=== PATIENT | male | born 1945 | race Asian ===

== ENCOUNTER 2020-06-22 08:10 | Outpatient (REF) | payer OTHER, SELFPAY | END 2020-06-22 08:11 | disposition home or self-care (01) | LOC: HO.HMGCLDS 08:10 | PROVIDERS: PCP Internal Medicine; Visit Provider Internal Medicine | DX: Z20.822 Contact with and (suspected) exposure to COVID-19 (principal) | CPT/HCPCS: 36415; C9803; U0003; U0005 ==

== ENCOUNTER 2022-08-20 09:00 | Outpatient (REF) | payer OTHER, SELFPAY ==
--- NOTE | ~2022-08-20 | XR_ITS ---
EXAMINATION: XR CHEST CLINICAL INFORMATION: R05.9 - Cough, unspecified COMPARISON: Chest radiographs 06/16/2009 TECHNIQUE: 2 views of the chest were obtained. FINDINGS: Mild nonspecific coarsening central bronchiolar markings. No bronchiectasis. No hyperinflation. No airspace consolidation or groundglass opacity or effusion. Heart size normal. Vascularity normal. Costophrenic sulci are clear. The hilar and mediastinal contours are unremarkable. There is mild curvature and multilevel degenerative changes again seen thoracic spine. XR/XR chest 2V IMPRESSION: -Mild nonspecific coarsening central bronchiolar markings. -No hyperinflation. Lungs clear.
[2022-08-20 11:55] LABS: Influenza A PCR NEGATIVE (Negative); Influenza B PCR NEGATIVE (Negative); Resp Syncy Virus RNA Qual PCR NEGATIVE (Negative); SARS COV2 PCR INHOUSE NEGATIVE (Negative)
== END 2022-08-20 09:01 | disposition home or self-care (01) ==
LOC: HO.HMGCX 09:00
PROVIDERS: PCP Internal Medicine; Visit Provider Internal Medicine
DX: R05.9 Cough, unspecified (principal); R43.9 Unspecified disturbances of smell and taste; Z20.822 Contact with and (suspected) exposure to COVID-19
CPT/HCPCS: 0241U; 71046

== ENCOUNTER 2023-07-09 08:00 | Outpatient (RCR) | payer OTHER, SELFPAY | END 2024-01-11 14:52 | disposition home or self-care (01) | LOC: HO.PTCHIC 08:00 | PROVIDERS: PCP Internal Medicine; Visit Provider Physician Assistant | DX: M75.42 Impingement syndrome of left shoulder (principal) | CPT/HCPCS: 97110; 97162 ==

== ENCOUNTER 2024-07-15 07:03 | Emergency (ER) | payer OTHER, SELFPAY ==
--- NOTE | ~2024-07-15 | XR_ITS ---
EXAMINATION: XR CHEST CLINICAL INFORMATION: right sided pain, fell 3 weeks ago COMPARISON: August 20, 2022. TECHNIQUE: 2 views of the chest were obtained. FINDINGS: No no consolidation, pleural effusion or pneumothorax. Cardiomediastinal silhouette demonstrates a prominent thoracic aortic arch, unchanged. Calcified lymph nodes in the perihilar region. Multilevel thoracic spondylosis. No acute cortical disruption/fracture. XR/XR chest 2V IMPRESSION: No acute airspace disease. Stable chest. Electronically signed by: Randy Brink MD 07/15/2024 09:53 AM EDT
--- NOTE | ~2024-07-15 | CT_ITS ---
EXAMINATION: CT SOFT TISSUE NECK WITH CONTRAST CLINICAL INFORMATION: Severe pain, right-sided neck. COMPARISON: None available. TECHNIQUE: Following the intravenous administration of 60 mL of Omnipaque 350 intravenous contrast, helical imaging was performed in the axial plane with generation of coronal and sagittal reformatted images. This CT examination was performed using dose optimization techniques as appropriate, variously including the following: *Automated exposure control *Adjustment of mA and/or kV according to patient size (this includes techniques or standardized protocols for targeted exams where dose is matched to indication/reason for exam; i.e. extremities or head) *Use of iterative reconstruction technique DLP: 656 mGy centimeter. FINDINGS: Skull base, nasopharynx, retropharynx, oropharynx, hypopharynx and larynx demonstrated no gross masses or fluid collections. Punctate calcification left palatine tonsil. Pet Nutrition Specialist spaces, parapharyngeal spaces and carotid spaces demonstrated no masses or fluid collections. Salivary glands demonstrated no enhancing lesion or sialolithiasis. The thyroid gland is not enlarged. There is no dominant nodule. The vessels are patent without high degree stenosis or intimal flap. Left vertebral artery slightly dominant. No masses or fluid collections in the intraconal or extraconal compartments of the orbits. No lymphadenopathy. Pulmonary mosaic pattern, upper lungs. Are subtly calcified pannus formation, periodontal C1 region. Cervical spondylosis C4-5 C5-6 and C6-7 and to a lesser extent C3-4. Dextroconvex nasal septum morphology. Mucosal thickening paranasal sinuses. Edentulous. Tympanic cavities and mastoid air cells are aerated.. CT/CT soft tissue neck w IV con IMPRESSION: No masses, fluid collections or lymphadenopathy. No high degree stenosis or dissection. Electronically signed by: Randy Brink MD 07/15/2024 11:35 AM EDT
--- NOTE | ~2024-07-15 | XR_ITS ---
EXAMINATION: XR ELBOW 3 VIEWS RIGHT HISTORY: Elbow injury last month, persistent pain COMPARISON: There are no prior studies available for comparison. FINDINGS: Three views of the right elbow are submitted. Osseous mineralization is normal. No fracture or dislocation is seen. There is moderate degenerative change with joint space narrowing and osteophyte formation. There is a joint effusion with elevation of the anterior fat pad. Soft tissue calcifications medial and laterally are likely related to a ligamentous in nature. XR/XR elbow RT min 3V IMPRESSION: Large joint effusion. Moderate degenerative changes. No fracture is seen. Electronically signed by: Torrey Wilson MD 07/15/2024 10:18 AM EDT
[2024-07-15 07:08] VITALS: BP 156/84; PULSE 50; RESP 20; TEMP 37.3; O2SAT 99; BMI 31.5
--- NOTE | 2024-07-15 07:39 | ED_ITS ---
HPI - General Adult General Chief complaint: Neck Pain/Injury Stated complaint: Pain/swelling R side of neck, recent fall Time Seen by Provider: 07/15/24 07:39 History of Present Illness ED Provider: Kai JOHNSON narrative: The patient is a 78-year-old male who says that he sustained a fall when he was traveling in [facility] about a month ago. At the time he fell he landed on his right side and primarily hurt is right elbow. He had an x-ray in [place] at the time that showed a joint effusion. The patient has been having some ongoing pain in the right elbow since then but it has been getting somewhat better. The patient returned from [facility] yesterday. He had a long flight. Last night at around 23:00 he started to have a very bad pain in the right side of his neck so that it is very difficult to turn his head to the right. He was unable to sleep. He says that at the time that he fell last month he may have injured his neck slightly but he had no imaging studies done in [facility]. He also hit his head slightly but had no loss of consciousness. He also had no brain imaging. He is not on anticoagulation. The patient has a history of pulmonary emboli and has been on warfarin in the past but is not currently on warfarin. 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 Related Data Home Medications ?Medication ?Instructions ?Recorded ?Confirmed aspirin 81 mg tablet,delayed 81 mg PO DAILY 02/21/22 08/20/22 release lisinopril 30 mg tablet 30 mg PO DAILY 02/21/22 08/20/22 Previous Rx's ?Medication ?Instructions ?Recorded prednisone 20 mg tablet 60 mg (3 x 20 mg) PO DAILY #9 tabs 08/20/22 azithromycin 250 mg tablet See Rx Instructions PO .COMPLEX #6 10/10/22 tabs [id number] 3.5 4 drp otic (ears) Q8H #10 mL 10/10/22 mg-10,000 unit/mL-1 % ear drops,susp acetaminophen 500 mg capsule 1,000 mg (2 x 500 mg) PO Q8H PRN 07/15/24 fever or pain #14 caps cyclobenzaprine 10 mg tablet 10 mg PO TID PRN muscle spasm #14 07/15/24 tabs ibuprofen 400 mg tablet 400 mg PO Q6H PRN pain #14 tabs 07/15/24 morphine 15 mg immediate release 15 mg PO Q6H PRN pain #14 tabs 07/15/24 tablet Allergies Allergy/AdvReac Type Severity Reaction Status Date / Time No Known Allergies Allergy Verified 07/15/24 07:14 Review of Systems 2 Review of Systems: Yes all other systems are reviewed and are negative [facility] Social History Social History Patient Tobacco Use Status: Never used Tobacco Physical Exam ED Vital Signs: Vital Signs - 24 hr 07/15/24 09:51 07/15/24 12:10 07/15/24 13:15 Temperature 97.6 F 97.8 F 98.5 F Pulse Rate 44 L 52 80 Respiratory Rate 18 18 18 Blood Pressure 148/70 H 139/67 135/88 Pulse Oximetry 98 98 Oxygen Delivery Method Room Air Room Air 07/15/24 13:50 Temperature 98.5 F Pulse Rate 80 Respiratory Rate 18 Blood Pressure 135/88 Pulse Oximetry 98 Oxygen Delivery Method Room Air BMI result Body Mass Index 31.5 Const Other: The patient is a 78-year-old male who was awake and alert. He was holding the right side of his neck with his hand. GCS is 15. He is pleasant and cooperative although he looks somewhat uncomfortable. HENMT Other: Face is symmetrical. Mucous membranes moist. Eyes Other: Pupils are round equal, conjunctivae are clear, extraocular movements intact. Neck Other: The patient has significant right-sided neck tenderness. This is mostly in the region of the posterior cervical chain although I do not appreciate any discrete lymph nodes. The anterior neck does not seem tender. There does not seem to be midline tenderness in the posterior neck. There is no visible abnormality to the neck and no palpable swelling. The patient has diminished range of motion of the neck particularly when he tries to turn his head to the right. Resp Effort & Inspection: normal respiratory effort Auscultation: clear to auscultation bilaterally Cardio Rate: bradycardic Rhythm: regular rhythm Heart sounds: S1 normal heart sound present and S2 normal heart sound present GI Other: Abdomen is soft and nontender Skin Other: Skin is dry and unremarkable. No skin changes to the skin of the neck in the region of the patient's tenderness. Neuro Other: The patient is awake and alert with a normal mental status. Pupils are round, equal, and reactive to light. No ptosis. Extraocular movements are intact. Face is symmetrical. Speech is normal. He has normal strength and sensation in his extremities. Finger-nose testing is normal in both arms. Heel-perkins testing is normal in both legs. Extrem Other: There is some mild generalized tenderness to the right elbow. He has a mildly diminished range of motion of the elbow. No calf swelling or tenderness. No peripheral edema. No asymmetry to the legs. Medications Administered Discontinued Medications Generic Name Dose Route Start Last Admin Trade Name Rodrickq PRN Reason Stop Dose Admin Iohexol 100 ml 07/15/24 10:59 07/15/24 10:59 Iohexol 350 Mg/Ml 100 Ml Infus..Btl IV 07/15/24 11:00 60 ml ONCE ONE Administration Ketorolac Tromethamine 10 mg 07/15/24 11:56 07/15/24 12:09 Ketorolac Tromethamine 15 Mg/Ml Vial IVPUSH 07/15/24 11:57 10 mg ONCE ONE Administration Morphine Sulfate 4 mg 07/15/24 09:36 07/15/24 09:49 Morphine Sulfate 4 Mg/Ml Cartridge IVPUSH 07/15/24 09:37 4 mg ONCE ONE Administration Protocol Ondansetron HCl 4 mg 07/15/24 09:36 07/15/24 09:49 Ondansetron Hcl 4 Mg/2 Ml Vial IVPUSH 07/15/24 09:37 4 mg ONCE ONE Administration Medical Decision Making Medical Decision Making [facility] Narrative: The patient is a 78-year-old male who presents with right-sided neck pain that began yesterday evening. The patient had recently returned to [facility] 2 days ago on a 15 hour flight. Patient also reports a fall several weeks ago in which he injured his right side, primarily his right elbow. He has an x-ray of the elbow that he obtained while in [facility] that showed a joint effusion. At the time of the fall several weeks ago he had only a trivial glance to the head and he had no acute neck pain at that time. The patient's complaint today, his right-sided neck pain, is a pain that started only last night, several weeks after the fall the patient describes. The patient is not on any anticoagulation although he has been on warfarin in the past. Four years ago he was found to have a pulmonary embolism. The etiology the Pulmonary embolism was not determined. Here in the emergency room the patient has what seems to be musculoskeletal right-sided neck pain. He has no fever. He has no neurological symptoms or findings. No findings or symptoms of a posterior circulation deficit. EKG shows sinus bradycardia. 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 An x-ray of the right elbow was done, essentially has a follow up to the x-ray he brought with him to the emergency room that has been taken an [place] several weeks ago. Today's x-ray also shows a joint effusion. The patient was treated for pain and seemed to get a lot of relief from ketorolac more so then from morphine. The patient will be discharged with prescriptions for acetaminophen, ibuprofen, cyclobenzaprine, and morphine tablets. Of note: At the time that the patient was discharged the official results of the right elbow x-ray were not available. I contacted the patient 2 days later on ThursdayJuly 17 and spoke to his regarding the finding of an effusion on the elbow. The patient's was given the contact information for [facility] for follow up for this issue. The told me that the patient's neck pain was doing better. Lab Data 07/15/24 08:02 07/15/24 08:02 Labs: Lab Results 07/15/24 Range/Units 08:02 WBC 7.6 (4.8-10.8) X10*3/uL RBC 5.49 (4.60-5.80) X10*6/uL Hgb 15.1 (14.0-18.0) g/dl Hct 45.3 (42.0-52.0) % MCV 82.5 (80.0-98.0) fL MCH 27.5 (27.0-33.0) pg MCHC 33.3 (31.0-36.0) g/dl RDW 15.1 (11.0-16.0) % Plt Count 214 (160-400) X10*3/uL MPV 9.0 L (9.4-12.4) fL Immature Gran % (Auto) 0.3 (0.0-0.4) % Neut % (Auto) 65.7 (45-73) % Lymph % (Auto) 19.1 L (20-40) % Levy % (Auto) 10.2 (2-11) % Eos % (Auto) 4.0 (0-4) % Baso % (Auto) 0.7 (0-2) % Lymph # (Auto) 1.5 (1.2-4.9) X10*3/uL Levy # (Auto) 0.8 (0.1-1.2) X10*3/uL Eos # (Auto) 0.3 (0.0-0.4) X10*3/uL Baso # (Auto) 0.1 (0.0-0.2) X10*3/uL Abs Immat Gran (auto) 0.02 (0.00-0.03) X10*3/uL Absolute Neuts (auto) 5.0 (2.0-8.3) x10*3/uL Absolute Nucleated RBC 0.000 (0.0-0.012) X10*3/uL Nucleated RBC % (auto) 0.0 (0.0-0.2) /100WBC PT 11.1 (10.9-12.4) SEC INR 1.0 (0.9-1.1) Sodium 137 (135-145) mmol/L Potassium 4.9 (3.3-5.1) mmol/L Chloride 112 H (96-108) mmol/L Carbon Dioxide 17 L (22-29) mmol/L Anion Gap 13 (12-20) BUN 11 (9-16) mg/dL Creatinine 0.87 (0.5-1.4) mg/dL Estim Creat Clear Calc 71.7 Estimated GFR > 60 Random Glucose 85 (60-115) mg/dL Calcium 8.9 (8.4-10.2) mg/dL Magnesium 1.8 (1.6-2.6) mg/dL Total Bilirubin 0.4 (0.0-1.0) mg/dL Direct Bilirubin 0.1 (0.0-0.5) mg/dL AST 37 (5-37) U/L ALT 19 (0-40) U/L Alkaline Phosphatase 77 (39-117) U/L Troponin I High Sens < 2.7 (<3.5-35.0) ng/L C-Reactive Protein 1.32 H (< or = 0.50) mg/dL Total Protein 7.6 (6.5-8.0) g/dL Albumin 3.5 (3.5-5.0) g/dL Influenza Type A (PCR) NEGATIVE (Negative) Influenza Type B (PCR) NEGATIVE (Negative) RSV RNA Qual (PCR) NEGATIVE (Negative) SARS-CoV-2 RNA (RT-PCR) NEGATIVE (Negative) Discharge Plan Discharge Clinical Impression: Neck pain on right side, Effusion of right elbow Patient Disposition: Home, Self-Care Instructions: Spasmodic Torticollis (ED) Additional Instructions: Your testing in the emergency room today seems reassuring. I suspect that you were having a severe muscle spasm type of pain that is sometimes called torticollis. For pain management you may take acetaminophen 1000 mg up to 3 times per day. You may also use the prescribed ibuprofen every 6 hours as needed. In addition I have sent a prescription for cyclobenzaprine, a muscle relaxant which you can use up to 3 times a day. Also a prescription for morphine tablets which you can also try if necessary. Be careful with cyclobenzaprine and morphine. Both of these medications can make you drowsy. No driving on these medications. Please rest and take it easy and drink lot of fluids. Please follow up with your regular doctor next week. Return to the emergency room if significantly worse. Prescriptions: New cyclobenzaprine 10 mg tablet 10 mg PO TID PRN (Reason: muscle spasm) Qty: 14 0RF ibuprofen 400 mg tablet 400 mg PO Q6H PRN (Reason: pain) Qty: 14 0RF morphine 15 mg tablet 15 mg PO Q6H PRN (Reason: pain) Qty: 14 0RF Rx Instructions: Partial Fill upon patient request. acetaminophen 500 mg capsule 1,000 mg PO Q8H PRN (Reason: fever or pain) Qty: 14 0RF No Action aspirin 81 mg tablet,delayed release (DR/EC) 81 mg PO DAILY lisinopril 30 mg tablet 30 mg PO DAILY azithromycin 250 mg tablet See Rx Instructions PO .COMPLEX Qty: 6 0RF Rx Instructions: take 500 mg today (day 1), then 250 mg for 4 days (days 2-5) PO shhejpxz-esanmhbbb-ZP 3.5-10,000-1 mg/mL-unit/mL-% drops,suspension 4 drp otic (ears) Q8H Qty: 10 0RF prednisone 20 mg tablet 60 mg PO DAILY Qty: 9 0RF Referrals: [facility] [Provider Group] (Persistent right elbow effusion) Joel Veronica III, MD [Primary Care Provider] - (Right-sided neck pain) Interventions: ED Discharge Assessment Last Done: 07/15/24 13:50 Discharge Date/Time: 07/15/24 13:51 Print Language: [place] Islander
--- NOTE | 2024-07-15 07:48 | ECG_ITS ---
Test Reason : NECK PAIN Blood Pressure : */* mmHG Vent. Rate : 52 BPM Atrial Rate : 52 BPM P-R Int : 190 ms QRS Dur : 104 ms QT Int : 440 ms P-R-T Axes : 80 -14 14 degrees QTcB Int : 409 ms Sinus bradycardia Otherwise normal ECG No previous ECGs available Referred By: Eddie Quinn Electronically Signed By: Jaciel Ghotra
[2024-07-15 08:05] LABS: MANUAL DIFF FLAG NO
[2024-07-15 08:09] LABS: Basophils Absolute Auto 0.1 X10*3/uL (0.0-0.2); Basophils Percent Auto 0.7 % (0-2); Eosinophils Absolute Auto 0.3 X10*3/uL (0.0-0.4); Hematocrit 45.3 % (42.0-52.0); Hemoglobin 15.1 g/dl (14.0-18.0); Imm Gran Abs Auto 0.02 X10*3/uL (0.00-0.03); Imm Gran Pct Auto 0.3 % (0.0-0.4); Lymphocytes Absolute Auto 1.5 X10*3/uL (1.2-4.9); Lymphocytes Percent Auto 19.1 % (20-40); Mean Corpuscular HGB Conc 33.3 g/dl (31.0-36.0); Mean Corpuscular Hemoglobin 27.5 pg (27.0-33.0); Mean Corpuscular Volume 82.5 fL (80.0-98.0); Monocytes Absolute Auto 0.8 X10*3/uL (0.1-1.2); Monocytes Percent Auto 10.2 % (2-11); Neutrophils Percent Auto 65.7 % (45-73); Platelet Count 214 X10*3/uL (160-400); Red Blood Count 5.49 X10*6/uL (4.60-5.80); Red Cell Distribution Width 15.1 % (11.0-16.0); White Blood Count 7.6 X10*3/uL (4.8-10.8)
[2024-07-15 08:33] LABS: Troponin-I High Sensitivity < 2.7 ng/L (<3.5-35.0)
[2024-07-15 08:34] LABS: Prothrombin Time 11.1 SEC (10.9-12.4)
[2024-07-15 08:51] LABS: Alanine Aminotransferase 19 U/L (0-40); Albumin Level 3.5 g/dL (3.5-5.0); Alkaline Phosphatase 77 U/L (39-117); Anion Gap 13 (12-20); Aspartate Amino Transferase 37 U/L (5-37); Bilirubin Direct 0.1 mg/dL (0.0-0.5); Bilirubin Total 0.4 mg/dL (0.0-1.0); Blood Urea Nitrogen 11 mg/dL (9-16); C Reactive Protein 1.32 mg/dL (< or = 0.50); Calcium 8.9 mg/dL (8.4-10.2); Carbon Dioxide 17 mmol/L (22-29); Chloride 112 mmol/L (96-108); Creatinine Clr Calc Pharmacy 71.7; Estimated Glomerular Filt Rate > 60; Glucose Random 85 mg/dL (60-115); Magnesium 1.8 mg/dL (1.6-2.6); Potassium 4.9 mmol/L (3.3-5.1); Sodium 137 mmol/L (135-145); Total Protein 7.6 g/dL (6.5-8.0)
[2024-07-15 09:40] LABS: Influenza A PCR NEGATIVE (Negative); Influenza B PCR NEGATIVE (Negative); Resp Syncy Virus RNA Qual PCR NEGATIVE (Negative); SARS COV2 PCR INHOUSE NEGATIVE (Negative)
[2024-07-15] MEDS: Morphine Sulfate 4 MG/ML CARTRIDGE IVPUSH (09:49)
[2024-07-15] MEDS: ondansetron HCL 4 MG/2 ML VIAL IVPUSH (09:49)
[2024-07-15 09:51] VITALS: BP 148/70; PULSE 44; RESP 18; TEMP 36.4; O2SAT 98
--- NOTE | 2024-07-15 09:52 | PC.NURSE ---
pt medicated per provider order. effectiveness pending.
[2024-07-15] MEDS: iohexoL 350 MG/ML 100 ML INFUS..BTL IV (10:59)
--- NOTE | 2024-07-15 11:16 | PC.NURSE ---
Report received from BRIAN Arriola. Taken over care at this time.
[2024-07-15] MEDS: Ketorolac Tromethamine 15 MG/ML VIAL 10 MG IVPUSH (12:09)
[2024-07-15 12:10] VITALS: BP 139/67; PULSE 52; RESP 18; TEMP 36.6; O2SAT 98
[2024-07-15 13:15] VITALS: BP 135/88; PULSE 80; RESP 18; TEMP 36.9
[2024-07-15 13:50] VITALS: BP 135/88; PULSE 80; RESP 18; TEMP 36.9; O2SAT 98
== END 2024-07-15 13:51 | disposition home or self-care (01) ==
PROVIDERS: Emergency Provider Emergency Medicine; PCP Internal Medicine
DX: M54.2 Cervicalgia (principal); M25.421 Effusion, right elbow; R00.1 Bradycardia, unspecified; R40.2410 Glasgow coma scale score 13-15, unspecified time; Z03.818 Encounter for observation for suspected exposure to other biological agents ruled out; Z79.899 Other long term (current) drug therapy
CPT/HCPCS: 0241U; 36415; 70491; 71046; 73080; 80048; 80076; 83735; 84484; 85025; 85610; 86140; 93005; 96374; 96375; 99284; 99285; J1885; J2270; J2405; Q9967

== ENCOUNTER → 2024-07-15 07:48 | Outpatient (BNV) | payer OTHER, SELFPAY | PROVIDERS: Emergency Provider Emergency Medicine; PCP Internal Medicine; Visit Provider Internal Medicine Cardiovascular Disease | DX: R00.1 Bradycardia, unspecified (principal) | CPT/HCPCS: 93010 ==

== ENCOUNTER → 2024-07-15 08:02 | Outpatient (BNV) | payer OTHER, SELFPAY | PROVIDERS: Emergency Provider Emergency Medicine; PCP Internal Medicine; Visit Provider Radiology Diagnostic Radiology | DX: M54.2 Cervicalgia (principal); R07.9 Chest pain, unspecified; M25.421 Effusion, right elbow; M19.021 Primary osteoarthritis, right elbow | CPT/HCPCS: 70491; 71046; 73080 ==

== ENCOUNTER 2024-08-05 08:10 | Outpatient (AMB) | payer OTHER, SELFPAY ==
--- OUTSIDE RECORDS SUMMARY | 2024-08-05 08:17 | XMS_ITS | Clinical Summary ---
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 Role Phone Unavailable Primary Care Provider Unavailabl e Immunizations Name Administration Dates Next Due Influenza injectable quadrivalent preservative f ree 05/07/2023 Social History Tobacco Use Types Packs/Day Years Used Date Smoking Tobacco: Never Assessed Sex and Gender Information Value Date Recorded Sex Assigned at Male 05/07/2023 10:01 AM EST Legal Sex Male 9:59 AM EST Gender Identity Male 05/07/2023 10:01 AM EST Sexual Orientation Choose not to disclose 2023 10:01 AM EST Plan of Treatment Health Maintenance Due Date Last Done Comments Depression Screening 1944 Lipid Panel 1944 SDOH Screening 1944 Alcohol/Substance Use Screening 1956 Tobacco Screening 1956 Hepatitis C Screening 1962 Zoster Vaccines (1 of 2) 1994 DTaP/Tdap/Td Vaccines (1 - Tdap) 03/20/2016 03/19/2016, 12/24/2010 RSV Patients and Patients Aged 60 years or older (1 - 1-dose 75+ series) 11/20/2019 COVID-19 Vaccine ( season) 2023 11/12/2021, 02/01/2021, 07/24/2020, Additional history exists Influenza Vaccine (#1) 2023 , 01/09/2023, 01/08/2021, Additional history exists Pneumococcal Vaccine: 50+ Years Completed 05/13/2018, 11/26/2010 HIB Vaccines Aged Out No longer eligi ble based on patient's age to complete this topic HPV Vaccines Aged Out No longer eligi ble based on patient's age to complete this topic Hepatitis A Vaccines Aged Out No long er eligible based on patient's age to complete this topic Hepatitis B Vaccines Aged Out No long er eligible based on patient's age to complete this topic IPV Vaccines Aged Out No longer eligi ble based on patient's age to complete this topic Meningococcal Vaccine Aged Out No bobby cecil eligible based on patient's age to complete this topic RSV under 20 months Aged Out No longe r eligible based on patient's age to complete this topic Rotavirus Vaccines Aged Out No longer eligible based on patient's age to complete this topic Insurance [facility]
--- OUTSIDE RECORDS SUMMARY | 2024-08-05 08:17 | XMS_ITS | Clinical Summary ---
Author Organization [facility] [address] [facility] Address [address] [place] [address] Phone Care Team Providers Care Clerical Assistant Name Role Phone Joel Veronica MD Primary Care Provider [phone] Allergies No known active allergies Medications acetaminophen (TYLENOL 8 HOUR) 650 mg 8 hr tablet Take 1 tablet (650 mg total) by mouth 2 (two) times a day. 02/09/20 24 Active apixaban (Eliquis) 5 mg tablet Take 1 tablet (5 mg total) by mouth 2 (two) times a day. 02/09/20 24 Active cetirizine (ZyrTEC) 10 mg tablet Take 1 tablet (10 mg total) by mouth 1 (one) time each day. 02/09/20 24 Active dapagliflozin propanediol (Farxiga) 10 mg tablet Take 1 tablet (10 mg total) by mouth 1 (one) time each day. 02/09/20 24 Active aspirin 81 mg EC tablet Take 1 tablet (81 mg total) by mouth 1 (one) time each day. 11/27/19 24 Active betamethasone, augmented, (DIPROLENE-AF) 0.05 % cream PLEASE SEE ATTACHED FOR DETAILED DIRECTIONS 02/09/20 24 Active lisinopril (PRINIVIL,ZESTR IL) 40 mg tablet Take 1 tablet (40 mg total) by mouth 1 (one) time each day. 01/29/20 24 Active metoprolol succinate (TOPROL-XL) 100 mg 24 hr tablet Take 1 tablet (100 mg total) by mouth 1 (one) time each day. 01/29/20 24 Active finasteride (PROSCAR) 5 mg tablet Take 1 tablet (5 mg total) by mouth 1 (one) time each day. 01/29/20 24 Active tamsulosin (FLOMAX) 0.4 mg 24 hr capsule Take 1 Capsule by mouth daily. Take 30 mins after same meal every day. 01/29/20 24 Active omeprazole (PriLOSEC) [address] capsule Take 1 capsule (20 mg total) by mouth 1 (one) time each day. 02/05/20 Active ergocalciferol (VITAMIN D-2) 1,250 mcg (50,000 unit) capsule Take 1 Capsule by mouth once a week. 12/10/19 24 Active spironolactone (ALDACTONE) 25 mg tablet TAKE 1/2 TABLET BY MOUTH DAILY 45 tablet 1 05/09/19 25 Active ferrous sulfate 325 mg (65 mg elemental iron) tablet TAKE 1 TABLET BY MOUTH EVERY DAY 180 tablet 1 08/03/19 25 Active ferrous sulfate 325 mg (65 mg elemental iron) tablet Take 1 tablet (325 mg total) by mouth 1 (one) time each day. 01/29/20 24 025 Discontinued Active Problems Problem Noted Date Diagnosed Date Atrial flutter ([facility] V24, [facility] V28) 2022 Cardiomyopathy ([facility] V24, [facility] V28) 2022 Overview (04/16/2024): With ejection fraction 20 to 25% Chest discomfort 02/05/2023 CKD (chronic kidney disease) stage 3, GFR 30-59 ml/min ([facility] V24, [facility] V28) 12/29/2019 Gastroesophageal reflux disease without esophagi tis 06/20/2019 HTN (hypertension) 03/19/2016 DJD (degenerative joint disease) of knee 013 Lipoma of abdominal wall 05/05/2012 Encounters Date Type Department Care Team Description 07/21/2024 11:30 AM EDT Office Visit Adult Medicine [address] [phone] Neeta Villegas PA Right elbow pain (Primary Dx); Neck muscle spasm; Benign prostatic hyperplasia with lower urinary tract symptoms, symptom details unspecified 07/14/2024 Telephone Adult Medicine [address] [phone] Joel Veronica MD Elbow Pain (Right due to fall (no greater than 10 ft)) from Last 3 Months Immunizations Name Administration Dates Next Due Influenza Quadravalent, MDCK , 0.5ml, preservative free (Flucelvax) 6mo and older 03/08/2018 Influenza trivalent, 0.5mL ( Fluad) 65yo and older 01/09/2023,01/09/2017,01/17/2015 Pneumococcal conjugate 13 va lent (Prevnar 13, PCV13) 2mo and older 05/13/2018 Pneumococcal polysaccharide 23 valent (Pneumovax 23) 2yo and older 11/26/2010 Td Tetanus diptheria (Tdvax) 7yo and older 03/19,12/24/2010 Surgical History Surgery Date Site/Laterality Comments OTHER SURGICAL HISTORY PROCEDURE: [place] CURTG/CAUT ANAL FISSURE W/DILAT SPHNCTR SPX 1ST COLONOSCOPY 06/25/16 PROCEDURE: HISTORICAL COLONOSCOPY; COMMENT: adenomas and tics; repeat in 3 yrs KNEE SURGERY 08/08/2016 PROCEDURE: HISTORICAL KNEE SURGERY; COMMENT: Dr. Aguilar Medical History Medical History Date Comments HTN (hypertension) DX:HTN (hyper tension) Gastroesophageal reflux dise ase without esophagitis 06/20/2019 DX:Gastroesophageal reflux d isease without esophagitis OA (osteoarthritis) DX:OA (osteo arthritis) Class 1 obesity DX:Class 1 obesi ty HTN (hypertension) 03/19/2016 Family History Medical History Relation Name Comments Other: Other Father , herni a Other: Mother Blindness Neg Hx Cataracts Neg Hx Glaucoma Neg Hx Macular degeneration Neg Hx Strabismus Neg Hx Relation Name Status Comments Father Mother Social History Tobacco Use Types Packs/Day Years Used Date Smoking Tobacco: Never Smokeless Tobacco: Current Tobacco Cessation:Ready to Q uit: Not Asked; Counseling Given: Not Answered Alcohol Use Standard Drinks/Week Comments No 0 (1 standard drink = 0.6 oz pur e alcohol) Sex and Gender Information Value Date Recorded Sex Assigned at Not on file Legal Sex Male 5:43 PM EST Gender Identity Not on file Sexual Orientation Not on file Obstetrics History Last Filed Vital Signs Vital Sign Reading Time Taken Comments Blood Pressure 112/68 07/21/2024 11:27 AM EDT Pulse 51 07/21/2024 11:27 AM EDT Temperature 36.6 ??C (97.8 ??F) 07/21/2024 11:27 AM E DT Respiratory Rate - - Oxygen Saturation - - Inhaled Oxygen Concentration - - Weight 90.7 kg (200 lb) 07/21/2024 11:27 AM EDT Height 170.2 cm (5' 7 ) 07/21/2024 11:27 AM EDT Body Mass Index 31.32 07/21/2024 11:27 AM EDT Plan of Treatment Upcoming Encounters Date Type Department Care Team (Late st Contact Info) Description 08/11/2024 9:00 AM EDT Consult Orthopedics - [address] [phone] Daniel Schaefer PA [address] [place] [address] 08/12/2024 9:45 AM EDT Office Visit Adult Medicine [address] [phone] Liliane Truong PA [address] [place] [address] 02/13/2025 9:30 AM EDT Office Visit Adult Medicine [address] [phone] Joel Veronica MD [address] [place] [phone] Health Maintenance Due Date Last Done Comments Zoster Vaccines (1 of 2) 1994 RSV Immunization Adult Patients (1 - 1-dose 75+ series) 11/20/2019 Colorectal Cancer Screening: Stool Based Tests (FOBT/FIT) 04/05/2022 Depression Screening 04/05/2022 Falls Risk Assessment 04/05/2022 Medicare Annual Wellness Visit 04/05/2022 Social Influencers of Health Screening 04/05/2022 Hypertension/CHF/CAD Annual BMP Blood Test 12/08/2024 12/09/2023, 12/09/2023, 11/24/2023 Cholesterol Screening (Lipid Panel) 11/20/2025 11/20/2020 DTaP,Tdap,and Td Vaccines (3 - Td or Tdap) 03/19/2026 03/19/2016, 12/24/2010 Hepatitis C Screening Completed 10/21/2012 Pneumococcal Vaccine: 50+ Years Completed 05/13/2018, 11/26/2010 COVID-19 Vaccine Completed 01/15/2024, , 02/01/2021, Additional history exists Influenza Vaccine Completed 01/22/2024, , 01/09/2023, Additional history exists HIB Vaccines Aged Out No longer eligi [...] on patient's age to complete this topic MMR Vaccines Aged Out No longer eligi ble based on patient's age to complete this topic Meningococcal ACWY Vaccine Aged Out N o longer eligible based on patient's age to complete this topic Meningococcal B Vaccine Aged Out No l onger eligible based on patient's age to complete this topic RSV Immunization Patients Under 20 months Aged Out No longer eligible based on patient's age to complete this topic Varicella Vaccines Aged Out No longer eligible based on patient's age to complete this topic Procedures Procedure Name Priority Date/Time Associated Diagnosis Comments ANNUAL BMP BLOOD TEST Routine 12/09/2023 LIPID PANEL Routine 11/20/2020 HEPATITIS C SCREENING Routine 10/21/2012 from Last 3 Months or Most Recently Relevant to Health Maintenance Results * Annual BMP Blood Test (12/09/2023) Annual BMP Blood Test abstracted us Historical Provider MD HEALTH MAINTENANCE Final Result * Lipid panel (11/20/2020) LDL/HDL Ratio 3 0 - 4 Triglycerides 72 0 - 150 mg/dL Cholesterol 150 0 - 200 mg/dL HDL 59 >=40 mg/dL LDL Cholesterol 77 0 - 100 mg/dL Blood Venous blood specimen / Unknown Historical Provider LAB BLOOD ORDERABLES Ree l Result * Hepatitis C Screening (10/21/2012) Hepatitis C Screening abstracted Historical Provider HEALTH MAINTENANCE Final Result from Last 3 Months or Most Recently Relevant to Health Maintenance Insurance [employer] Member Subscriber Plan / Payer (Ef fective 2016-Present) Name:Jacqueline Figueroa Relation to Subscriber:Self Name:Jacqueline Figueroa Payer ID:[id number] Group ID:[id number] Type:Not on file Address: [place] [address] [address] [address] [phone] Care Teams Clerical Assistant Relationship Specialty Start Date End Date Joel Veronica MD [address] [place] [address] [phone] PCP - General 08/16/10
--- OUTSIDE RECORDS SUMMARY | 2024-08-05 08:17 | XMS_ITS | Clinical Summary ---
Author Organization [facility] Address [address] [place] [address] Care Team Providers Care Marine Equipment Engineer Name Role Phone Joel Veronica MD Primary Care Provider [phone] Allergies No known active allergies Medications Medication Sig Dispensed Refills Start Date End Date Status Diclofenac Sodium 1 % GEL topical RUB 4 GRAMS ONTO THE AFFECTED AREA TWICE A DAY 0 01/26/2020 Active lisinopril (PRINIVIL,ZESTRIL) tablet 20 mg Take 1 tablet (20 mg total) by mouth daily. 0 01/08/2020 Active omeprazole (PriLOSEC) 20 MG capsule Take 1 capsule (20 mg total) by mouth daily. 0 02/05/2020 Active Emollient (CERAVE) LOTN Apply topically. 0 Active ferrous sulfate 325 (65 FE) MG tablet Take 1 tablet (325 mg total) by mouth every morning with breakfast. 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 Acute pulmonary embolism without acute cor pulmo nale 03/05/2020 Skin rash 03/05/2020 Pulmonary infarction 03/05/2020 CKD (chronic kidney disease) stage 3, GFR 30-59 ml/min 12/29/2019 Gastroesophageal reflux disease without esophagi tis 06/20/2019 HTN (hypertension) 03/19/2016 DJD (degenerative joint disease) of knee 013 Social History Tobacco Use Types Packs/Day Years Used Date Smoking Tobacco: Never Smokeless Tobacco: Never Alcohol Use Standard Drinks/Week Comments No 0 (1 standard drink = 0.6 oz pur e alcohol) Sex and Gender Information Value Date Recorded Sex Assigned at Not on file Gender Identity Not on file Sexual Orientation Not on file Job Start Date Occupation Industry Not on file Not on file Not on file Last Filed Vital Signs Vital Sign Reading Time Taken Comments Blood Pressure 137/73 05/22/2022 10:12 AM EST Pulse 77 05/22/2022 10:12 AM EST Temperature 36.8 ??C (98.2 ??F) 05/22/2022 10:[address] Respiratory Rate - - Oxygen Saturation 96% 05/22/2022 10:12 AM EST Inhaled Oxygen Concentration - - Weight 96.3 kg (212 lb 6.4 oz) 05/22/2022 10:12 AM EST Height 168.9 cm (5' 6.5 ) 03/07/2021 9:32 AM EST Body Mass Index 33.77 03/07/2021 9:32 AM EST Plan of Treatment Health Maintenance Due Date Last Done Comments Hepatitis C Screening 1944 COVID-19 Vaccine (#1) 05/22/1945 Depression Screening 1956 Preventative Health Evaluation 1962 Shingrix-Zoster Vaccine (1 o f 2) 1994 Fall Risk Assessment 2009 DTap / Tdap / Td (1 - Tdap) 03/20/201602/26, 12/24/2010 RSV Adult > 60+ Yrs or (1 - 1-dose 75+ series) 11/20/2019 Influenza Vaccine (#1) 2023 8, 01/09/2017, 01/17/2015 Pneumococcal Vaccine Completed 05/13/2018, 11/26/2010 Hepatitis B Vaccines Aged Out No long er eligible based on patient's age to complete this topic RSV Ped < 20 months Aged Out No longe r eligible based on patient's age to complete this topic Care Teams Marine Equipment Engineer Relationship Specialty Start Date End Date Joel Veronica MD PCP - General Internal Medicine 02/20/20
[2024-08-05 08:46] VITALS: BP 130/88; PULSE 82; TEMP 36.4; O2SAT 97; BMI 31.3
--- NOTE | 2024-08-05 08:46 | MHC.OFFWIV ---
Intake Vital Signs 08/05/24 08:46 Height 5 ft 6 in Weight 194 lb BMI 31.3 BP 130/88 Blood Pressure Location Lt brachial Position Sitting Pulse 82 Pulse Source Pulse Oximeter Temp 97.6 F Temp Source Oral Pulse Oximetry (%) 97 Oxygen Delivery Method Room Air Intake Visit Reasons: EP diarreah off & on for 2 weeks Intake Note: Pt presents to the office today for c/o diarrhea that comes and goes x2 weeks. Pt states he also has dizziness. Pt states he was in [place] about a month ago. Patient Tobacco Use Status: Never used Tobacco Allergies No Known Allergies Allergy (Verified 08/05/24 08:47) Medication List - Last Reconciled 08/05/24 by Art Fry MD acetaminophen 1,000 mg (2 x 500 mg) PO Q8H PRN aspirin 81 mg PO DAILY cyclobenzaprine 10 mg PO TID PRN ibuprofen 400 mg PO Q6H PRN lisinopril 30 mg PO DAILY krubvagy-yydibzhbk-N[place] 3.5-10,000-1 mg/mL-unit/mL-% 4 drps otic (ears) Q8H omeprazole 20 mg PO DAILY omeprazole 40 mg PO DAILY HPI EP diarreah off & on for 2 weeks HPI Details History - The patient is a 78-year-old male presenting with diarrhea and associated symptoms following travel - Diarrhea commenced intermittently after returning from [place] and has persisted for multiple weeks. - Symptom improvement is noted with the use of Imodium, although symptoms recur periodically. - The patient denies any blood in stools, but reports dizziness and a decrease of 10 pounds in body weight since the onset of symptoms. - The patient's appetite has been diminished, though shows gradual improvement. - There is no fever, and no nausea is reported. - The frequency of diarrhea varies, sometimes occurring up to three times in a single morning. - Observations indicate unease and inflammatory sensation in the stomach. Problem List - Traveler's Diarrhea - Unspecified Gastritis Patient Instructions - Limit the intake of Imodium to assess the current state of symptoms. - Ensure adequate hydration, emphasizing the intake of fluids such as Gatorade or adult electrolyte solutions. - Maintain a diet involving boiled rice, chicken soup, and boiled pasta while avoiding dairy, citrus, and tea. - Avoid yogurt until symptoms resolve. - Complete blood work and stool studies as ordered. - Avoid tea and follow dietary recommendations to aid in recovery. Review of Systems - General: No fever no chills - Neurological: No headaches no dizziness - Ear nose throat: No sore throat no hearing difficulty no ear pain - Cardiovascular: No syncope, no chest pain, no palpitations Physical Exam General: No acute distress HEENT: No acute findings Neck: Supple Respiratory system: Able to talk in full sentences, no audible wheeze Gastrointestinal: discomfort LUQ with deep palpation, Bs +, no pain over LLQ Extremities: No new findings GLUER MACHINE SETUP OPERATOR: Alert awake oriented x3 motor sensory intact Skin: Normal turgor [facility] Social History Patient Tobacco Use Status: Never used Tobacco Physical Exam Vital Signs: Last Vital Signs Temp 97.6 F 08/05/24 08:46 Pulse 82 08/05/24 08:46 BP 130/88 08/05/24 08:46 Pulse Ox 97 08/05/24 08:46 Oxygen Delivery Method Room Air 08/05/24 08:46 BMI result Body Mass Index 31.3 Assessment & Plan Assessment & Plan (1) Diarrhea: Code(s): R19.7 - Diarrhea, unspecified Qualifiers: Diarrhea type: presumed infectious Qualified Code(s): R19.7 - Diarrhea, unspecified (2) Abdominal pain: Code(s): R10.9 - Unspecified abdominal pain Qualifiers: Abdominal location: left upper quadrant Qualified Code(s): R10.12 - Left upper quadrant pain (3) Travel-related illness: Code(s): R69 - Illness, unspecified (4) Lack of appetite: Code(s): R63.0 - Anorexia (5) Dizziness: Code(s): R42 - Dizziness and giddiness Plan History - The patient is a 78-year-old male presenting with diarrhea and associated symptoms following travel - Diarrhea commenced intermittently after returning from [place] and has persisted for multiple weeks. - Symptom improvement is noted with the use of Imodium, although symptoms recur periodically. - The patient denies any blood in stools, but reports dizziness and a decrease of 10 pounds in body weight since the onset of symptoms. - The patient's appetite has been diminished, though shows gradual improvement. - There is no fever, and no nausea is reported. - The frequency of diarrhea varies, sometimes occurring up to three times in a single morning. - Observations indicate unease and inflammatory sensation in the stomach. Vitals stable Problem List - Traveler's Diarrhea - Unspecified Gastritis Patient Instructions - Limit the intake of Imodium to assess the current state of symptoms. - Ensure adequate hydration, emphasizing the intake of fluids such as Gatorade or adult electrolyte solutions. - Maintain a diet involving boiled rice, chicken soup, and boiled pasta while avoiding dairy, citrus, and tea. - Avoid yogurt until symptoms resolve. - Complete blood work and stool studies as ordered. - Avoid tea and follow dietary recommendations to aid in recovery. Orders: Orders Cyclospora & Isospora Stool Today R19.7 - Diarrhea, unspecified Leukocytes Stool Qualitative Today R19.7 - Diarrhea, unspecified Lipase Today R10.9 - Unspecified abdominal pain, R19.7 - Diarrhea, unspecified Giardia Ag Stool EIA Today R19.7 - Diarrhea, unspecified Complete Blood Count Auto Diff Today R19.7 - Diarrhea, unspecified Comprehensive Met. Panel Today R19.7 - Diarrhea, unspecified CDiff Gene PCR Today R19.7 - Diarrhea, unspecified GI Panel Today R19.7 - Diarrhea, unspecified Amylase Today R10.9 - Unspecified abdominal pain, R19.7 - Diarrhea, unspecified Medications: New omeprazole 40 mg PO DAILY 14 caps 0RF Coding Level of Care Code Est Pt Level 4 (35894) Diagnoses Diarrhea of presumed infectious origin R19.7 Diarrhea type: presumed infectious Left upper quadrant abdominal pain R10.12 Abdominal location: left upper quadrant Travel-related illness R69 Lack of appetite R63.0 Dizziness R42
== END 2024-08-05 09:17 | disposition home or self-care (01) ==
PROVIDERS: PCP Internal Medicine; Visit Provider Internal Medicine
DX: R19.7 Diarrhea, unspecified (principal); R10.12 Left upper quadrant pain; R69 Illness, unspecified; R63.0 Anorexia; R42 Dizziness and giddiness

== ENCOUNTER 2024-08-05 08:10 | Outpatient (REF) | payer OTHER, SELFPAY ==
--- OUTSIDE RECORDS SUMMARY | 2024-08-05 09:28 | XMS_ITS | Clinical Summary ---
Author Organization [facility] Address [address] [facility] [address] [place] [address] Care Team Providers Care Measurement And Verification Engineer Name Role Phone Unavailable Primary Care Provider [...] patient's age to complete this topic Insurance [facility]
--- OUTSIDE RECORDS SUMMARY | 2024-08-05 09:28 | XMS_ITS | Clinical Summary ---
Author Organization [facility] Address [address] [place] [address] Care Team Providers Care Powder Carrier Name Role Phone Joel Veronica MD Primary Care Provider [phone] Allergies No known active allergies Medications Medication [...] age to complete this topic Care Teams Powder Carrier Relationship Specialty Start Date End Date Joel Veronica MD PCP - General Internal Medicine 02/20/20
--- OUTSIDE RECORDS SUMMARY | 2024-08-05 09:29 | XMS_ITS | Clinical Summary ---
Author Organization [facility] [address] [facility] Address [address] [place] [address] Phone Care Team Providers Care Library Serials Assistant Name Role Phone Joel Veronica MD Primary Care Provider [phone] Allergies No known active allergies Medications acetaminophen [...] Problem Noted Date Diagnosed Date Atrial flutter ([facility] V24, [facility] V28) 2022 Cardiomyopathy ([facility] V24, [facility] V28) 2022 Overview (04/16/2024): With ejection fraction 20 to 25% Chest discomfort 02/05/2023 CKD (chronic kidney disease) stage 3, GFR 30-59 ml/min ([facility] V24, [facility] V28) 12/29/2019 Gastroesophageal reflux disease without esophagi tis 06/20/2019 HTN (hypertension) 03/19/2016 DJD (degenerative joint disease) of knee 013 Lipoma of abdominal wall 05/05/2012 Encounters Date Type Department Care Team Description 07/21/2024 11:30 AM EDT Office Visit Adult Medicine [address] [phone] Neeta Villegas PA Right elbow pain (Primary Dx); Neck muscle spasm; Benign prostatic hyperplasia with lower urinary tract symptoms, symptom details unspecified 07/14/2024 Telephone Adult Medicine [address] [phone] Joel Veronica MD Elbow Pain [...] Date Site/Laterality Comments OTHER SURGICAL HISTORY PROCEDURE: [place] CURTG/CAUT ANAL FISSURE W/DILAT SPHNCTR SPX 1ST [...] 08/11/2024 9:00 AM EDT Consult Orthopedics - [address] [phone] Daniel Schaefer PA [address] [place] [address] 08/12/2024 9:45 AM EDT Office Visit Adult Medicine [address] [phone] Liliane Truong PA [address] [place] [address] 02/13/2025 9:30 AM EDT Office Visit Adult Medicine [address] [phone] Jeol Veronica MD [address] [place] [phone] Health Maintenance Due Date Last Done Comments [...] ID:[id number] Group ID:[id number] Type:Not on file Address: [place] [address] [place] [phone] Care Teams Library Serials Assistant Relationship Specialty Start Date End Date Joel Veronica MD [address] [place] [address] [phone] PCP - General 08/16/10
[2024-08-05 10:27] LABS: MANUAL DIFF FLAG NO
[2024-08-05 10:31] LABS: Basophils Percent Auto 0.3 % (0-2); Eosinophils Absolute Auto 0.5 X10*3/uL (0.0-0.4); Eosinophils Percent Auto 7.9 % (0-4); Hematocrit 52.1 % (42.0-52.0); Hemoglobin 16.7 g/dl (14.0-18.0); Imm Gran Abs Auto 0.02 X10*3/uL (0.00-0.03); Imm Gran Pct Auto 0.3 % (0.0-0.4); Lymphocytes Absolute Auto 1.2 X10*3/uL (1.2-4.9); Lymphocytes Percent Auto 19.5 % (20-40); Mean Corpuscular HGB Conc 32.1 g/dl (31.0-36.0); Mean Corpuscular Volume 84.3 fL (80.0-98.0); Monocytes Absolute Auto 0.7 X10*3/uL (0.1-1.2); Monocytes Percent Auto 11.7 % (2-11); Neutrophils Absolute Auto 3.7 x10*3/uL (2.0-8.3); Neutrophils Percent Auto 60.3 % (45-73); Platelet Count 172 X10*3/uL (160-400); Red Blood Count 6.18 X10*6/uL (4.60-5.80); Red Cell Distribution Width 15.4 % (11.0-16.0); White Blood Count 6.1 X10*3/uL (4.8-10.8)
[2024-08-05 10:46] LABS: Alanine Aminotransferase 25 U/L (0-40); Alkaline Phosphatase 76 U/L (39-117); Anion Gap 11 (12-20); Aspartate Amino Transferase 29 U/L (5-37); Bilirubin Total 0.8 mg/dL (0.0-1.0); Blood Urea Nitrogen 16 mg/dL (9-16); Calcium 9.6 mg/dL (8.4-10.2); Carbon Dioxide 26 mmol/L (22-29); Chloride 106 mmol/L (96-108); Estimated Glomerular Filt Rate > 60; Glucose Random 98 mg/dL (60-115); Potassium 4.4 mmol/L (3.3-5.1); Sodium 139 mmol/L (135-145); Total Protein 7.6 g/dL (6.5-8.0)
[2024-08-05 14:48] LABS: Leukocytes Stool Qualitative NEGATIVE (NEGATIVE)
[2024-08-05 15:03] LABS: CDiff Gene PCR NEGATIVE (Negative)
[2024-08-05 15:26] LABS: Adenovirus F 40/41 Not Detected (Not Detect.); Astrovirus Not Detected (Not Detect.); Campylobacter Not Detected (Not Detect.); Cryptosporidium Not Detected (Not Detect.); Cyclospora cayetanensis Not Detected (Not Detect.); E. coli EAEC Detected (Not Detect.); E. coli EPEC Detected (Not Detect.); E. coli ETEC Not Detected (Not Detect.); E. coli STEC Not Detected (Not Detect.); Entamoeba histolytica Not Detected (Not Detect.); Giardia lamblia Not Detected (Not Detect.); Norovirus GI/GII Not Detected (Not Detect.); Plesiomonas shigelloides Not Detected (Not Detect.); Rotavirus A Not Detected (Not Detect.); Salmonella Not Detected (Not Detect.); Sapovirus Not Detected (Not Detect.); Shigella sp./EIEC Not Detected (Not Detect.); Vibrio Not Detected (Not Detect.); Vibrio Cholerae Not Detected (Not Detect.); Yersinia enterocolitica Not Detected (Not Detect.)
== END 2024-08-05 08:11 | disposition home or self-care (01) ==
LOC: HO.HMGCLDS 08:10
PROVIDERS: PCP Internal Medicine; Visit Provider Internal Medicine
DX: R19.7 Diarrhea, unspecified (principal); R10.12 Left upper quadrant pain; R69 Illness, unspecified; R63.0 Anorexia; R42 Dizziness and giddiness
CPT/HCPCS: 36415; 80053; 85025; 87015; 87207; 87329; 87493; 87507; 89055; 99212

== ENCOUNTER 2024-11-17 08:00 | Outpatient (AMB) | payer OTHER, SELFPAY ==
--- OUTSIDE RECORDS SUMMARY | 2024-11-17 08:03 | XMS_ITS | Encounter Summary ---
Author Organization [facility] Address [address] [place] [address] Care Team Providers Care Diesel Machinist Name Role Phone Joel Veronica MD Primary Care Provider [phone] Reason for Visit * Reason Onset Date Comments UTI 11/16/2024 Encounter Details Date Type Department Care Team ([facility] st Contact Info) Description 11/16/2024 Nurse Triage Adult Medicine [address] [phone] Joel Veronica MD [address] [place] [address] [id number] UTI Social History Tobacco Use Types Packs/Day Years Used Date Smoking Tobacco: Never Smokeless Tobacco: Current Alcohol Use Standard Drinks/Week Comments No 0 (1 standard drink = 0.6 oz pur e alcohol) Housing Instability Answer Date Recorde d Are you worried that in the next 2 months you may not have stable housing? No 08/11/2024 Food Access & Nutrition Answer Date Rec orded Do you have access to a vari ety of food including fruits and vegetables? Yes 08/11/2024 Access to Healthcare Answer Date Record ed Within the last 3 months, ho w many times did you visit the emergency department for your medical care? 1 08/11/2024 Health Literacy Answer Date Recorded How often do you need to hav e someone help you when you read instructions, pamphlets, or other written material from your doctor or pharmacy? Never 08/11/2024 Caregiver: How often do you need to have someone help you when you read instructions, pamphlets, or other written material from your doctor or pharmacy? Not on file 08/11/2024 Financial Risk Answer Date Recorded How hard is it for you to pa y for the very basics like food, housing, medical care, and air conditioning / heating? Not very hard 08/11/2024 Transportation Answer Date Recorded Has the lack of transportati on kept you from meetings, work, or from getting things needed for daily living? No Has the lack of transportati on kept you from medical appointments or from getting medications? No 08/11/2024 Social Isolation Answer Date Recorded How often do you feel lonely or isolated from th ose around you? Never 08/11/2024 Food Risk Answer Date Recorded Within the past 12 months we worried whether our food would run out before we got money to buy more. Never true 08/11/2024 Within the past 12 months th e food we bought just didn't last and we didn't have money to get more. Never true 08/11/2024 Dependent Care Answer Date Recorded Do you need help finding or paying for care for your loved ones. For example, early childhood special educator or elderly care for an older adult? No 08/11/2024 Education Answer Date Recorded Do you think completing more education or training, like finishing a GED, going to college, or learning a trade, would be helpful for you? No 08/11/2024 Employment and Income Answer Date Recor ded During the last four weeks, have you been actively looking for work? No 08/11/2024 Living Situation Answer Date Recorded What is your living situation? 0 08/11/2024 Sex and Gender Information Value Date Recorded Sex Assigned at Male 08/11/2024 12:53 PM EDT Legal Sex Male 5:43 PM EST Gender Identity Male 08/11/2024 12:53 PM EDT Sexual Orientation Straight 08/11/2024 12 :53 PM EDT documented as of this encounter Progress Notes * Jennifer Thomas RN - 11/16/2024 1:26 PM EDT She was instructed to take him to the ER for further evaluation and treatment. She is in agreement with this plan and states she will take him to [facility] ER. She was instructed to callto make him an ER follow up appointment after he has been evaluated. Reason for Disposition [1] MILD-MODERATE pain AND [2] constant AND [3] age > 60 years Answer Assessment - Initial Assessment Questions 1. LOCATION: Where does it hurt? Lower middle abdominal pain 2. RADIATION: Does the pain shoot anywhere else? (e.g., chest, back) No radiation 3. ONSET: When did the pain begin? (Minutes, hours or days ago) 2 days ago becoming progressively worse 4. SUDDEN: Gradual or sudden onset? Gradual 5. PATTERN Does the pain come and go, or is it constant? Constant 6. SEVERITY: How bad is the pain? (e.g., Scale 1-10; mild, moderate, or severe) He rates the pain as 6/10 with activity and 2/10 at rest 7. RECURRENT SYMPTOM: Have you ever had this type of stomach pain before? If Yes, ask: When was the last time? and What happened that time? No 8. CAUSE: What do you think is causing the stomach pain? (e.g., gallstones, recent abdominal surgery) Unknown. She states a few months before he went to [facility] pt had prostate problems and was told Dr. Veronica would look into it when he returned. 9. RELIEVING/AGGRAVATING FACTORS: What makes it better or worse? (e.g., antacids, bending or twisting motion, bowel movement) The pain worsens with activity. Has not taken OTC medication. 10. OTHER SYMPTOMS: Do you have any other symptoms? (e.g., back pain, diarrhea, fever, urination pain, vomiting) No other symptoms. She states he is urinating without difficulty. Protocols used: Abdominal Pain - Male-A-AH * Yaz Pelayo - 11/16/2024 1:15 PM EDT The patient's spouse is calling due to a UTI with pain when urination. Started 11/14/24. documented in this encounter Plan of Treatment Upcoming Encounters Date Type Department Care Team (Late st Contact Info) Description 11/22/2024 8:00 AM EDT Office Visit [address] [phone] Justa Briggs [employer] [address] [place], [place] 02/13/2025 9:30 AM EDT Office Visit Adult Medicine [facility] [address] [place], [place] [phone] Joel Veronica MD [address] [place] [address] 02/15/2025 8:50 AM EDT Office Visit Gastroenterology - [place] [address] [place] [phone] Lilly Mcmahan PA [address] [place] [address] documented as of this encounter Visit Diagnoses Not on filedocumented in this encounter Additional Health Concerns Assessment Noted Time PHQ-9 Depression Total Score: 0 08/12/19 25 4:28 PM EDT documented as of this encounter Care Teams Diesel Machinist Relationship Specialty Start Date End Date Joel Veronica MD [address] [place] [address] PCP - General 08/16/10 documented as of this encounter
--- OUTSIDE RECORDS SUMMARY | 2024-11-17 08:03 | XMS_ITS | Clinical Summary ---
Author Organization [facility] Address [address] [facility] 7 [place] [address] Care Team Providers Care Psych Sales Specialist Name Role Phone Unavailable Primary Care Provider Unavailabl e Immunizations Immunization Administration Dates Next Due Influenza injectable quadrivalent [...] 07/24/2020, Additional history exists Influenza Vaccine (#1) 2024 , 01/09/2023, 01/08/2021, Additional history exists Pneumococcal [...] patient's age to complete this topic Insurance [facility] < 65
--- OUTSIDE RECORDS SUMMARY | 2024-11-17 08:03 | XMS_ITS | Clinical Summary ---
Author Organization [facility] Address [address] [place] [address] Care Team Providers Care Resolution Specialist Name Role Phone Joel Veronica MD Primary Care Provider [phone] Allergies No known active allergies Medications Medication [...] 77 05/22/2022 10:12 AM EST Temperature 36.8 C (98.2 F) 05/22/2022 10:12 AM EST Respiratory Rate - - Oxygen Saturation 96% [...] 1-dose 75+ series) 11/20/2019 Influenza Vaccine (#1) 2024 8, 01/09/2017, 01/17/2015 Pneumococcal Vaccine Completed 05/13/2018, 11/26/2010 Hepatitis B Vaccines Aged Out No long er eligible based on patient's age to complete this topic RSV Ped < 20 months Aged Out No longe r eligible based on patient's age to complete this topic Care Teams Resolution Specialist Relationship Specialty Start Date End Date Joel Veronica MD PCP - General Internal Medicine 02/20/20
[2024-11-17 08:26] VITALS: BP 116/70; PULSE 66; TEMP 36.9; O2SAT 95; BMI 34.1
--- NOTE | 2024-11-17 08:26 | AM.OFFWIN_ITS ---
Intake Vital Signs 11/17/24 08:26 Height 5 ft 6 in Weight 211 lb 6 oz BMI 34.1 BP 116/70 Blood Pressure Location Lt brachial Position Sitting Pulse 66 Pulse Source Pulse Oximeter Temp 98.4 F Temp Source Oral Pulse Oximetry (%) 95 Oxygen Delivery Method Room Air Intake Visit Reasons: EP lower abdominal pain Patient Tobacco Use Status: Never used Tobacco Press Breaker Required: No Allergies No Known Allergies Allergy (Verified 11/17/24 08:29) Do you need a note to return to daycare/school/sports/work: No HPI HPI Comments History of Present Illness Details History of Present Illness - The patient is a 78-year-old male pres enting with abdominal pain. - Abdominal pain began two days ago, ini tially mild, but increased in intensity yesterday. - He states that the pain is 1-2/10 and its constant. - Pain is localized to the middle lower abdomen and is exacerbated by walking. - Urination provides slight relief, but pain persists. - No associated symptoms of nausea, vomi ting, fever, or diarrhea. - No radiation of the pain into the test icles bilaterally or penile pain. - No history of kidney stones, urinary o bstruction, or burning during urination. - History of right-sided hernia repair, no current signs of hernia recurrence. - He denies fever or chills. - He denies chest pain, SOB, diarrhea, c onstipation, hematuria, burning with urination, frequency or urgency. Physical Exam General: Cooperative, healthy appearing, comfortable, no acute distress and well developed Orientation: Patient oriented x3 Respiratory: Normal respiratory effort and able to speak in complete sentences. Clear to auscultation bilaterally Cardiovascular: Regular rate and rhythm. Normal S1 and S2 GI: Hypoactive bowel sounds noted. Soft, distended. TTP of the suprapubic region. No guarding or rebound tenderness noted. Negative Rovsing and negative Preciado's. Negative psaos and obturator. Negative CVA tenderness noted. Skin: No rashes or lesions noted Patient was informed and verbally consented to the use of an ambient scribe for clinic note documentation during this visit. [facility] Social History Patient Tobacco Use Status: Never used Tobacco Review of Systems Const All systems reviewed & are unremarkable except as noted in HPI and below Physical Exam Vital Signs: Last Vital Signs Temp 98.4 F 11/17/24 08:26 Pulse 66 11/17/24 08:26 BP 116/70 11/17/24 08:26 Pulse Ox 95 11/17/24 08:26 Oxygen Delivery Method Room Air 11/17/24 08:26 BMI result Body Mass Index 34.1 Assessment & Plan Assessment & Plan (1) Suprapubic abdominal pain: Code(s): R10.2 - Pelvic and perineal pain Plan Most likely UTI vs stone vs ?hernia vs bladder retention vs bowel issues UA in the office shows 3+ glucose, no blood or leukos Plan - Urinalysis to rule out urinary tract infection. - Diet as tolerated. - tylenol as needed for pain - call and reschedule his GI appointment he missed on 11/15 - Consider further imaging if symptoms persist or worsen. - Advised the ER if pain worsens, fever, chills, vomiting, etc Coding Level of Care Code Est Pt Level 4 (99640) Diagnoses Suprapubic abdominal pain R10.2
== END 2024-11-17 09:55 | disposition home or self-care (01) ==
PROVIDERS: PCP Internal Medicine; Visit Provider Physician Assistant Medical
DX: Z13.9 Encounter for screening, unspecified (principal); R10.2 Pelvic and perineal pain

== ENCOUNTER → 2024-11-17 08:00 | Outpatient (BNVA) | payer OTHER, SELFPAY | PROVIDERS: PCP Internal Medicine; Visit Provider Physician Assistant Medical | DX: R10.2 Pelvic and perineal pain (principal) | CPT/HCPCS: 81003; 99212 ==

== ENCOUNTER 2025-01-04 08:46 | Outpatient (REF) | payer OTHER, SELFPAY ==
--- NOTE | ~2025-01-04 | XR_ITS ---
EXAMINATION: XR CHEST CLINICAL INFORMATION: R05.9 - Cough, unspecified COMPARISON: July 15, 2024 TECHNIQUE: 2 views of the chest were obtained. FINDINGS: Lung volumes are low. Minimal basilar density likely represents atelectasis, left greater than right. There is no pleural effusion. The aorta is tortuous. Focal calcification in the left suprahilar region and represents a calcified lymph node or pulmonary granuloma. XR/XR chest 2V IMPRESSION: Mild basilar atelectasis, greater on the left, pneumonia not ruled out. Electronically signed by: Kale Du MD 01/04/2025 10:31 AM EDT
== END 2025-01-04 08:47 | disposition home or self-care (01) ==
LOC: HO.HMGCX 08:46
PROVIDERS: PCP Internal Medicine; Visit Provider Physician Assistant Medical
DX: R07.89 Other chest pain (principal); J98.11 Atelectasis; R05.9 Cough, unspecified; W06.XXXA Fall from bed, initial encounter
CPT/HCPCS: 71046; 99212

== ENCOUNTER 2025-01-04 08:46 | Outpatient (AMB) | payer OTHER, SELFPAY ==
[2025-01-04 09:07] VITALS: BP 98/54; PULSE 52; TEMP 36.4; O2SAT 97; BMI 33.2
--- NOTE | 2025-01-04 09:07 | AM.OFFWIN_ITS ---
Intake Vital Signs 01/04/25 09:07 Height 5 ft 6 in Weight 206 lb BMI 33.2 BP 98/54 L Blood Pressure Location Rt brachial Position Sitting Pulse 52 Pulse Source Pulse Oximeter Temp 97.5 F Temp Source Oral Pulse Oximetry (%) 97 Oxygen Delivery Method Room Air Intake Visit Reasons: EP-lt side chest pain & swelling, knee pain-fall Intake Note: pt presents with left sided chest pain with swelling after falling out of bed 4am today Patient Tobacco Use Status: Never used Tobacco Allergies No Known Allergies Allergy (Verified 11/17/24 08:29) Do you need a note to return to daycare/school/sports/work: No HPI HPI Comments History of Present Illness Details History of Present Illness - The patient is an 79-year-old male pre senting with a fall from bed. - The fall occurred early in the morning while the patient was asleep, resulting in him landing on a hardwood floor with a small carpet piece. - He hit the side of the head on the wal l and landed on the floor. - He laid on the floor for about 30 lacy gus before he helped himself up, back into his bed. - He then went back to sleep. - Initially, the patient experienced epifanio n on the entire left side, which later localized to the chest, exacerbated by coughing, deep breathing, and movement. - The patient reported dizziness and a b rief episode of head pain post-fall, but no current headache or neck pain. - The patient is on blood thinners, whic h was confirmed during the visit. - He denies shoulder pain, back pain, hi p pain, arm pain, knee pain or ankle pain. - He denies LOC, chest pain, SOB, or abd pain. Physical Exam General: Cooperative, healthy appearing, comfortable, no acute distress and well developed Orientation: Patient oriented x3 Limitations: No limitations Head: Normal to inspection, no tenderness to the scalp. Ears: Hearing grossly normal bilaterally Face and sinus: Normal facial exam. No TTP of the facial bones. Eyes: Appearance normal, both eyes and all related structures Neck: Normal visual inspection, full ROM. No TTP of the cervical spinous processes. Respiratory: Normal respiratory effort, able to speak in complete sentences. No w/r/r noted. Anterior left chest wall tender to palpation. No crepitus noted. Cardiac: RRR. No m/r/g noted. Skin: No rashes or lesions noted. No abrasions or ecchymosis noted. Neuro: Patient oriented x3, CN 2-12 intact, gait normal Back/spine: no TTP cervical, thoracic or lumbar spine, no pain noted Extremities: FROM of the UE and LE bilaterally. Strength is 5/5 on the UE and LE. Patient was informed and verbally consented to the use of an ambient scribe for clinic note documentation during this visit. [facility] Social History Patient Tobacco Use Status: Never used Tobacco Review of Systems Const All systems reviewed & are unremarkable except as noted in HPI and below Physical Exam Vital Signs: Last Vital Signs Temp 97.5 F 01/04/25 09:07 Pulse 52 01/04/25 09:07 BP 98/54 L 01/04/25 09:07 Pulse Ox 97 01/04/25 09:07 Oxygen Delivery Method Room Air 01/04/25 09:07 BMI result Body Mass Index 33.2 Results Reviewed Results Reviewed: EKG in the office reviewed Will review the xray in the office Assessment & Plan Assessment & Plan (1) Fall: Code(s): W19.XXXA - Unspecified fall, initial encounter Qualifiers: Encounter type: initial encounter Qualified Code(s): W19.XXXA - Unspecified fall, initial encounter (2) Chest wall pain: Code(s): R07.89 - Other chest pain (3) Atelectasis: Code(s): J98.11 - Atelectasis Plan Most likely chest pain after a fall, possible rib fracture An EKG showed sinus bradycardia, consistent with previous results from June. CXR in the office- no fractures noted, basilar atelectasis can not rule out pneumonia plan - will treat for pneumonia - zpak and augmentin were prescribed - advised the daughter to take him to the ER if the pain continues or he is SOB - follow up with PCP Orders: Orders XR chest 2V Today R05.9 - Cough, unspecified Medications: New amoxicillin-pot clavulanate 875-125 mg 1 tab PO Q12H 20 tabs 0RF 10 days azithromycin For 250 mg dose pack: take 500 mg today (day 1), then 250 mg for 4 days (days 2-5) PO 6 tabs 0RF Coding Level of Care Code Est Pt Level 4 (94575) Diagnoses Fall, initial encounter W19.XXXA Encounter type: initial encounter Chest wall pain R07.89 Atelectasis J98.11
--- OUTSIDE RECORDS SUMMARY | 2025-01-04 10:12 | XMS_ITS | Clinical Summary ---
Author Organization [facility] [address] [facility] Address [address] [place] [address] Phone Care Team Providers Care Rn Diabetes Name Role Phone Joel Veronica MD Primary Care Provider [phone] Allergies No known active allergies Medications acetaminophen (TYLENOL 8 HOUR) 650 mg 8 hr tablet Take 1 tablet (650 mg total) by mouth 2 (two) times a day. 4 Active apixaban (Eliquis) 5 mg tablet Take 1 tablet (5 mg total) by mouth 2 (two) times a day. 4 Active betamethasone, augmented, (DIPROLENE-AF) 0.05 % cream 4 Active finasteride (PROSCAR) 5 mg tablet Take 1 tablet (5 mg total) by mouth 1 (one) time each day. 4 Active ferrous sulfate 325 mg (65 mg elemental iron) tablet TAKE 1 TABLET BY MOUTH EVERY DAY 180 tablet 1 5 Active dapagliflozin propanediol (Farxiga) 10 mg tablet Take 1 tablet (10 mg total) by mouth 1 (one) time each day. 90 tablet 1 5 Active tamsulosin (FLOMAX) 0.4 mg 24 hr capsule Take 1 capsule (0.4 mg total) by mouth 1 (one) time each day. Capsules should be taken 30 minutes following the same meal each day. 90 capsule 1 5 Active omeprazole (PriLOSEC) [address] capsule TAKE 1 CAPSULE BY MOUTH EVERY DAY 90 capsule 1 5 Active lisinopril (PRINIVIL,ZESTRIL ) 40 mg tablet TAKE 1 TABLET BY MOUTH EVERY DAY 90 tablet 1 5 Active aspirin 81 mg EC tablet TAKE 1 TABLET BY MOUTH EVERY DAY 90 tablet 1 5 Active spironolactone (ALDACTONE) 25 mg tablet TAKE 1/2 TABLET BY MOUTH DAILY 45 tablet 1 5 Active metoprolol succinate (TOPROL-XL) 100 mg 24 hr tabletIndications :Hypotension, unspecified hypotension type,Primary hypertension Take 0.5 tablets (50 mg total) by mouth 1 (one) time each day. 90 tablet 5 Active Active Problems Problem Noted Date Diagnosed Date Atrial flutter ([facility] V24, [facility] V28) 2022 Cardiomyopathy ([facility] V24, [facility] V28) 2022 Overview (04/16/2024): With ejection fraction 20 to 25% Acute pulmonary embolism wit hout acute cor pulmonale ([facility] V24, [facility] V28) 03/05/2020 CKD (chronic kidney disease) stage 3, GFR 30-59 ml/min ([facility] V24, [facility] V28) 12/29/2019 Gastroesophageal reflux disease without esophagi tis 06/20/2019 HTN (hypertension) 03/19/2016 DJD (degenerative joint disease) of knee 013 Lipoma of abdominal wall 05/05/2012 Resolved Problems Problem Noted Date Diagnosed Date Resolved Date Chest discomfort 02/05/2023 08/08/2024 Encounters Date Type Department Care Team Description 11/22/2024 9:56 AM EDT - 11/22/2024 11:59 PM EDT Hospital Encounter Radiology Department - [address] [phone] Suprapubic pain; Groin pain, right Discharge Disposition: Home or Self Care 11/22/2024 8:00 AM EDT Office Visit Adult Medicine [address] [phone] Justa Briggs, SENIOR DRAFTER Suprapubic pain (Primary Dx); Groin pain, right; Primary hypertension; Hypotension, unspecified hypotension type; Prediabetes 11/22/2024 Telephone Adult [address] [phone] Jennifer Thomas RN 11/17/2024 Telephone Gastroenterology [facility] [address] [place] [address] Lilly Mcmahan PA 11/17/2024 Telephone Adult [address] [phone] Joel Veronica MD 11/16/2024 Nurse Triage [address] [phone] Joel Veronica MD 11/02/2024 5:00 PM EDT Office Visit [address] [phone] Justa Briggs NP Hypotension, unspecified hypotension type (Primary Dx); Primary hypertension; Need for vaccination against Streptococcus pneumoniae; Dehydration 11/01/2024 Nurse Triage [address] [phone] Joel Veronica MD from Last 3 Months Immunizations Name Administration Dates Next Due Influenza Quadravalent, MDCK , 0.5ml, preservative free (Flucelvax) 6mo and older 03/08/2018 Influenza trivalent, 0.5mL ( Fluad) 65yo and older 01/09/2023,01/09/2017,01/17/2015 Influenza trivalent, 0.5mL ( Fluzone High-dose) 65yo and older 12/30/2024 Pneumococcal conjugate 13 va lent (Prevnar 13, PCV13) 2mo and older 05/13/2018 Pneumococcal polysaccharide 23 valent (Pneumovax 23) 2yo and older 11/26/2010 Td Tetanus diptheria (Tdvax) 7yo and older 03/19,12/24/2010 Surgical History Surgery Date Site/Laterality Comments OTHER SURGICAL HISTORY ANAL FISSURE W/DILAT SPHNCTR SPX 1ST COLONOSCOPY 06/25/16 adenomas and tics; repeat in 3 yrs KNEE SURGERY 08/08/2016 Medical History Medical History Date Comments Gastroesophageal reflux disease without esophagi tis 06/20/2019 OA (osteoarthritis) Class 1 obesity HTN (hypertension) 03/19/2016 Family History Medical History Relation Name Comments Other: Other Father , herni a Other: Mother Relation Name Status Comments Father Mother Social History Tobacco Use Types Packs/Day Years Used Date Smoking Tobacco: Never Smokeless Tobacco: Current Alcohol Use Standard Drinks/Week Comments No 0 (1 standard drink = 0.6 oz pur e alcohol) Housing Instability Answer Date Recorde d Are you worried that in the next 2 months you may not have stable housing? No 11/22/2024 Food Access & Nutrition Answer Date Rec orded Do you have access to a vari ety of food including fruits and vegetables? Yes 11/22/2024 Access to Healthcare Answer Date Record ed Within the last 3 months, ho w many times did you visit the emergency department for your medical care? 1 11/22/2024 Health Literacy Answer Date Recorded How often do you need to hav e someone help you when you read instructions, pamphlets, or other written material from your doctor or pharmacy? Sometimes 11/22/2024 Caregiver: How often do you need to have someone help you when you read instructions, pamphlets, or other written material from your doctor or pharmacy? Not on file 11/22/2024 Financial Risk Answer Date Recorded How hard is it for you to pa y for the very basics like food, housing, medical care, and air conditioning / heating? Not very hard 11/22/2024 Transportation Answer Date Recorded Has the lack of transportati on kept you from meetings, work, or from getting things needed for daily living? No Has the lack of transportati on kept you from medical appointments or from getting medications? No 11/22/2024 Social Isolation Answer Date Recorded How often do you feel lonely or isolated from th ose around you? Never 11/22/2024 Food Risk Answer Date Recorded Within the past 12 months we worried whether our food would run out before we got money to buy more. Never true 11/22/2024 Within the past 12 months th e food we bought just didn't last and we didn't have money to get more. Never true 11/22/2024 Dependent Care Answer Date Recorded Do you need help finding or paying for care for your loved ones. For example, child care attendant school or elderly care for an older adult? No 11/22/2024 Education Answer Date Recorded Do you think completing more education or training, like finishing a GED, going to college, or learning a trade, would be helpful for you? N/A 11/22/2024 Employment and Income Answer Date Recor ded During the last four weeks, have you been actively looking for work? No 11/22/2024 Living Situation Answer Date Recorded What is your living situation? 0 11/22/2024 Sex and Gender Information Value Date Recorded Sex Assigned at Male 08/11/2024 12:53 PM EDT Legal Sex Male 5:43 PM EST Gender Identity Male 08/11/2024 12:53 PM EDT Sexual Orientation Straight 08/11/2024 12 :53 PM EDT Obstetrics History Last Filed Vital Signs Vital Sign Reading Time Taken Comments Blood Pressure 110/60 11/22/2024 8:02 AM EDT Pulse 70 11/22/2024 8:02 AM EDT Temperature 36 C (96.8 F) 11/22/2024 8:02 AM EDT Respiratory Rate 16 11/22/2024 8:02 AM EDT Oxygen Saturation 97% 11/22/2024 8:02 AM EDT Inhaled Oxygen Concentration - - Weight 95.9 kg (211 lb 6.4 oz) 11/22/2024 8:02 A M EDT Height 168.3 cm (5' 6.26 ) 11/22/2024 8:02 AM ED T Body Mass Index 33.85 11/22/2024 8:02 AM EDT Plan of Treatment Upcoming Encounters Date Type Department Care Team (Late st Contact Info) Description 02/13/2025 9:30 AM EDT Office Visit Adult Medicine [address] [phone] Joel Veronica MD [address] [place] [address] 02/15/2025 8:50 AM EDT Office Visit Gastroenterology - [place] [address] [place] [address] Lilly Mcmahan PA [address] [place] [address] Health Maintenance Due Date Last Done Comments Zoster Vaccines (1 of 2) 11/20/1964 RSV Immunization Adult Patients (1 - 1-dose 75+ series) 11/20/2019 Colorectal Cancer Screening: Stool Based Tests (FOBT/FIT) 04/05/2022 Medicare Annual Wellness Visit 04/05/2022 COVID-19 Vaccine (6 - Pfizer risk season) 2024 01/15/2024, 11/12/2021, 02/01/2021, Additional history exists Falls Risk Assessment 08/12/2025 08/12/2024 Hypertension/CHF/CAD Annual BMP Blood Test 11/02/2025 11/02/2024, 09/08/2024, 12/09/2023, Additional history exists Social Influencers of Health Screening 11/22/2025 11/22/2024 DTaP,Tdap,and Td Vaccines (3 - Td or Tdap) 03/19/2026 03/19/2016, 12/24/2010 Cholesterol Screening (Lipid Panel) 09/08/2029 09/08/2024, 11/20/2020 Pneumococcal Vaccine: 50+ Years Completed 05/13/2018, 11/26/2010 Depression Screening Completed 11/22/2024 Influenza Vaccine Completed 12/30/2024, , 03/08/2018, Additional history exists HIB Vaccines Aged Out [...] Procedure Name Priority Date/Time Associated Diagnosis Comments US ABDOMEN LIMITED Routine 11/22/2024 10 :36 AM EDT Suprapubic pain Groin pain, right COMPREHENSIVE METABOLIC PANEL Routine 11/02/2024 4:44 PM EDT Hypotension, unspecified hypotension type Primary hypertension LIPID PANEL WITH REFLEX TO DIRECT LDL Routine 09/08/2024 8:30 AM EDT Screening for lipid disorders from Last 3 Months or Most Recently Relevant to Health Maintenance Results * US Abdomen Limited (11/22/2024 10:36 AM EDT) Anatomical Region Laterality Modality Body Ultrasound 11/22/2024 10:4 0 AM EDT Impressions 11/22/2024 10:46 AM EDT No sonographic abnormality identified in the areas of pain. POS - [id number] -------- FINAL REPORT -------- Dictated By: Dilcia Sands Dictated Date: 11/22/2024 10:40 ET Assigned Physician: Dilcia Sands Reviewed and Electronically Signed By: iDlcia Sands Signed Date: 11/22/2024 10:46 ET Workstation ID: [id number] Transcribed By: Self Edit Transcribed Date: 11/22/2024 10:40 ET Narrative 11/22/2024 10:46 AM EDT EXAM: Ultrasound abdomen, limited HISTORY: Midline suprapubic pain when bending over. Also, right inguinal canal pain. COMPARISON: None, correlation with CT abdomen and pelvis 09/29/2024 FINDINGS: Patient delineated areas of pain in the midline pelvis, right inguinal region, and left flank area. Sonography performed supine and standing and with Valsalva maneuver. No solid or cystic lesion identified. No sonographic evidence of a hernia. Procedure Note Dilcia Sands MD - 11/22/2024 EXAM: Ultrasound abdomen, limited HISTORY: Midline suprapubic pain when bending over. Also, right inguinalcanal pain. COMPARISON: None, correlation with CT abdomen and pelvis 09/29/2024 FINDINGS: Patient delineated areas of pain in the midline pelvis, right inguinalregion, and left flank area. Sonography performed supine and standing andwith Valsalva maneuver. No solid or cystic lesion identified. Nosonographic evidence of a hernia. IMPRESSION: No sonographic abnormality identified in the areas of pain. POS - [id number] -------- FINAL REPORT -------- Dictated By: Dilcia Sands Dictated Date: 11/22/2024 10:40 ET Assigned Physician: Dilcia Sands Reviewed and Electronically Signed By: Dilcia Sands Signed Date: 11/22/2024 10:46 ET Workstation ID: [id number] Transcribed By: Self Edit Transcribed Date: 11/22/2024 10:40 ET us Justa Briggs SENIOR DRAFTER IMG US PROCEDURES Final Resul t * (ABNORMAL) Comprehensive metabolic panel (11/02/2024 4:44 PM EDT) Sodium 139 133 - 145 mmol/L LAB CHEMISTRY METHOD 11/02/2024 8:15 PM [facility] Potassium 4.8 3.5 - 5.5 mmol/L LAB CHEMISTRY METHOD 11/02/2024 8:15 PM [facility] Chloride 105 96 - 110 mmol/L LAB CHEMISTRY METHOD 11/02/2024 8:15 PM [facility] CO2 30 21 - 32 mmol/L LAB CHEMISTRY METHOD 11/02/2024 8:15 PM [facility] Anion Gap 4 3 - 11 LAB CHEMISTRY METHOD 11/02/2024 8:15 PM [facility] Glucose 75 70 - 100 mg/dL LAB CHEMISTRY METHOD 11/02/2024 8:15 PM [facility] BUN 20 5 - 25 mg/dL LAB CHEMISTRY METHOD 11/02/2024 8:15 PM [facility] Creatinine 1.38(H) 0.70 - 1.30 mg/dL LAB CHEMISTRY METHOD 11/02/2024 8:15 PM [facility] eGFR 52(L) >=60 mL/min/1. 73m2 LAB CHEMISTRY METHOD 11/02/2024 8:15 PM [facility] Comment:Calculation based on the Chronic Kidney Disease Epidemiology Collaboration (CKD-EPI) equation refit without adjustment for race. BUN/Creatinine Ratio 14.5 LAB CHEMISTRY METHOD 11/02/2024 8:15 PM [facility] Calcium 9.7 8.5 - 10.5 mg/dL LAB CHEMISTRY METHOD 11/02/2024 8:15 PM [facility] AST (SGOT) 21 10 - 42 unit/L LAB CHEMISTRY METHOD 11/02/2024 8:15 PM [facility] ALT (SGPT) 30 10 - 60 unit/L LAB CHEMISTRY METHOD 11/02/2024 8:15 PM [facility] Alkaline Phosphatase 83 42 - 121 unit/L LAB CHEMISTRY METHOD 11/02/2024 8:15 PM [facility] Total Protein 7.1 6.0 - 8.0 g/dL LAB CHEMISTRY METHOD 11/02/2024 8:15 PM [facility] Albumin 3.6 3.2 - 5.0 g/dL LAB CHEMISTRY METHOD 11/02/2024 8:15 PM [facility] Total Bilirubin 0.5 0.0 - 1.4 mg/dL LAB CHEMISTRY METHOD 11/02/2024 8:15 PM [facility] Blood Venous blood specimen / Unknown Venipuncture / Unknown 11/02/2024 4:44 PM EDT 11/02/2024 4:44 PM EDT us Justa Briggs SENIOR DRAFTER LAB BLOOD ORDERABLES Final Re sult [facility] [address] [place] [address], [place] [phone] * (ABNORMAL) Lipid panel with reflex to direct LDL (09/08/2024 8:30 AM EDT) Cholesterol 151 0 - 200 mg/dL LAB CHEMISTRY METHOD 09/08/2024 10:53 AM EDT [facility] Triglycerides 213(H) 0 - 150 mg/dL LAB CHEMISTRY METHOD 09/08/2024 10:53 AM EDT [facility] HDL 51 >=40 mg/dL LAB CHEMISTRY METHOD 09/08/2024 10:53 AM EDT [facility] LDL Calculated 57 0 - 100 mg/dL LAB CHEMISTRY METHOD 09/08/2024 10:53 AM EDT [facility] VLDL Cholesterol Ben 42.6 mg/dL LAB CHEMISTRY METHOD 09/08/2024 10:53 AM EDT [facility] Non HDL Chol. (LDL+VLDL) 100 <145 mg/dL LAB CHEMISTRY METHOD 09/08/2024 10:53 AM EDT [facility] Chol/HDL Ratio 3.0 0.0 - 4.4 LAB CHEMISTRY METHOD 09/08/2024 10:53 AM EDT [facility] Blood Venous blood specimen / Unknown Venipuncture / Unknown 09/08/2024 8:30 AM EDT 09/08/2024 8:30 AM EDT Liliane DEJESUS LAB BLOOD ORDERABLES Fi nal Result [facility] [address] [place] [address], [place] [phone] from Last 3 Months or Most Recently Relevant [id number] [employer] MED[employer] Member Subscriber Plan / Payer (Ef fective 2016-Present) Name:Jacqueline Figueroa Relation to Subscriber:Self Name:Kun Figueroacharito S Payer ID:[id number] Group ID:[id number] Type:Not on file Address: [place] [address] [place] [phone] Care Teams Rn Diabetes Relationship Specialty Start Date End Date Joel Veronica MD [address] [place] [address] [place] [phone] PCP - General 08/16/10
--- OUTSIDE RECORDS SUMMARY | 2025-01-04 10:12 | XMS_ITS | Clinical Summary ---
Author Organization [employer] Address [address] [facility] [address] [place] [address] Care Team Providers Care Machine Ii Engraver Name Role Phone Unavailable Primary Care Provider [...] Alcohol/Substance Use Screening 1957 Tobacco Screening 1957 Zoster Vaccines (1 of 2) 1994 DTaP/Tdap/Td Vaccines (1 - Tdap) 03/20/2016 03/19/2016, 12/24/2010 RSV Patients and Patients Aged 60 years or older (1 - 1-dose 75+ series) 11/20/2019 COVID-19 Vaccine ( - season) 2024 11/12/2021, 02/01/2021, 07/24/2020, Additional history exists Influenza [...] topic Meningococcal Vaccine Aged Out No bobby eccil eligible based on patient's age to complete this topic RSV under 20 months Aged Out No longe r eligible based on patient's age to complete this topic Rotavirus Vaccines Aged Out No longer eligible based on patient's age to complete this topic Insurance [facility] < 65
--- OUTSIDE RECORDS SUMMARY | 2025-01-04 10:12 | XMS_ITS | Clinical Summary ---
Author Organization [facility] Address [address] [place] [address] Care Team Providers Care Mine Environmental Engineer Name Role Phone Joel Veronica MD Primary Care Provider [phone] Allergies No known active allergies Medications Medication [...] Health Maintenance Due Date Last Done Comments COVID-19 Vaccine (#1) 05/22/1946 Depression Screening 1957 [...] age to complete this topic Care Teams Mine Environmental Engineer Relationship Specialty Start Date End Date Joel Veronica MD PCP - General Internal Medicine 02/20/20
== END 2025-01-04 10:55 | disposition home or self-care (01) ==
PROVIDERS: PCP Internal Medicine; Visit Provider Physician Assistant Medical
DX: R07.89 Other chest pain (principal); W19.XXXA Unspecified fall, initial encounter; J98.11 Atelectasis

== ENCOUNTER → 2025-01-04 10:14 | Outpatient (BNV) | payer OTHER, SELFPAY | PROVIDERS: PCP Internal Medicine; Visit Provider Radiology Diagnostic Radiology | DX: R05.9 Cough, unspecified (principal) | CPT/HCPCS: 71046 ==